=== PATIENT | male | born 1995 | race Caucasian/White ===

== ENCOUNTER 2023-05-06 18:16 | Emergency (ER) | payer OTHER ==
[~2023-05-06] VITALS: Ht 162.6 cm; Wt 74.8 kg
== END 2023-05-06 20:38 | disposition home or self-care (01) ==
LOC: ER 18:16
PROVIDERS: General Practice
DX: A54.9 Gonococcal infection, unspecified (principal)

== ENCOUNTER 2023-06-20 12:16 | Emergency (ER) | payer OTHER ==
[~2023-06-20] VITALS: Ht 165.1 cm; Wt 72.6 kg
[2023-06-20] MEDS ORDERED: ANALPRAM HC 2.530 GM RECTAL (13:35)
[2023-06-20] MEDS ORDERED: DICLOFENAC SODI75 MG PO (13:35)
[2023-06-20] MEDS ORDERED: DULCOLAX STOOL100 M1 PO (13:35)
== END 2023-06-20 14:19 | disposition home or self-care (01) ==
LOC: ER 12:16
DX: K64.9 Unspecified hemorrhoids (principal); Z88.0 Allergy status to penicillin

== ENCOUNTER 2023-06-23 21:10 | Emergency (ER) | payer OTHER ==
[~2023-06-23] VITALS: Ht 165.1 cm; Wt 73.0 kg
[~2023-06-23 21:10] MED LIST: ANALPRAM HC 2.530 GM RECTAL; DICLOFENAC SODI75 MG PO; DULCOLAX STOOL100 M1 PO
== END 2023-06-23 22:58 | disposition home or self-care (01) ==
LOC: ER 21:10
DX: L73.9 Follicular disorder, unspecified (principal); Z88.0 Allergy status to penicillin

== ENCOUNTER 2023-07-23 10:04 | Emergency (ER) | payer OTHER ==
[~2023-07-23] VITALS: Ht 165.1 cm; Wt 72.6 kg
[2023-07-23] MEDS ORDERED: MUPIROCIN15 GM TOP (12:24)
[2023-07-23] MEDS ORDERED: BACTRIM DS TAB1 EACH PO (12:24)
== END 2023-07-23 13:00 | disposition home or self-care (01) ==
LOC: ER 10:04
DX: R23.8 Other skin changes (principal); Z88.8 Allergy status to other drugs, medicaments and biological substances